=== PATIENT | male | born 1960 | race Caucasian/White ===

== ENCOUNTER → 2018-10-30 | Outpatient (CLI) | payer MEDICARE, OTHER ==
[2018-10-30 14:37] LABS: BLOOD UREA NITROGEN 11 MG/DL (7-18); GLOMERULAR FILTRATION RATE > 60.0 (>56)
== END ==
LOC: M SMT 11:42
PROVIDERS: ATTEND Psychiatry & Neurology Neurology
DX: I10 Essential (primary) hypertension (principal)

== ENCOUNTER 2025-07-07 07:44 | Day surgery (SDC) | payer MEDICARE, OTHER ==
[~2025-07-07] VITALS: Ht 177.8 cm; Wt 112.9 kg
[~2025-07-07 07:44] MED LIST: AMLO5CAP53 PO; ATOR1TAB19 PO; BACL10TA2 PO; DESL1TBM PO; FARX1TAB3 PO; MEMA10TA PO; NEBI5TAB2 PO; SERT50TA29 PO; TADA5TAB2 PO; TRES1INJ SC
[2025-07-07] MEDS ORDERED: GLYCOPYRROLATE INJ 0.2 MG/ML 2 ML VIAL As Ordered ONE (08:37)
[2025-07-07] MEDS ORDERED: LIDOCAINE 2% 100 MG/5 ML SDV (FOR ANES.) As Ordered ONE (08:37)
[2025-07-07 09:11] VITALS: TEMP 98.9
[2025-07-07 09:29] VITALS: BP 138/81; O2SAT 98
== END 2025-07-07 09:46 | disposition home or self-care (01) ==
LOC: M OPP 07:44
PROVIDERS: ATTEND Internal Medicine Gastroenterology
DX: Z12.11 Encounter for screening for malignant neoplasm of colon (principal); D12.2 Benign neoplasm of ascending colon; K64.8 Other hemorrhoids; G47.30 Sleep apnea, unspecified; Z79.4 Long term (current) use of insulin; Z79.899 Other long term (current) drug therapy; Z87.891 Personal history of nicotine dependence
CPT/HCPCS: 45385; 88305; J1596; J2765